=== PATIENT | female | born 1930 | race Caucasian/White ===

== ENCOUNTER 2017-10-10 21:11 | Emergency (ER) | payer MEDICARE, OTHER ==
[~2017-10-10] VITALS: Ht 157.5 cm; Wt 51.3 kg
[~2017-10-10 21:11] MED LIST: AMLODIPINE BESYL5 MG PO; ASPIR 8181 MG PO; CARAFATE1 GM PO; CIPRO500 MG PO; DOXEPIN HCL75 MG PO; ECOTRIN81 MG PO; FUROSEMIDE20 MG PO; GLIMEPIRIDE2 MG PO; GLIPIZIDE ER5 MG PO; GLIPIZIDE5 MG PO; GLUCOPHAGE500 MG PO; KLOR-CON 1010 MEQ PO; KLOR-CON M1010 MEQ PO; LASIX40 MG PO; LEVATOL20 MG PO; LOPRESSOR25 MG PO; LORAZEPAM0.5 MG PO; LOTREL 5-10 MG1 EACH PO; MULTAQ 400MG T400 MG PO; PACERONE200 MG PO; PANTOPRAZOLE SO20 MG PO; PANTOPRAZOLE SO40 MG PO; PROLIA60 MG/1 ML SQ; SUCRALFATE1 GM PO; VITAMIN C1000 M1 PO; VITAMIN C1000 M2 PO; VITAMIN D2000 UNIT PO; VITAMIN E100 UNIT PO; VITAMIN E400 UNI2 PO; [UNRECOGNIZED DRUG - OTHER] PO
--- OUTSIDE RECORDS SUMMARY | 2017-10-10 21:14 | XMS REPORT ---
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 Allergies, Adverse Reactions, Alerts This patient has no known allergies or adverse reactions. Medications This patient has no known medications. Results Test Description Test Time Test Comments Text Results Atomic Results Result Comments CHEST SINGLE (PORTABLE) [place] [address] Patient Name: SOFYA MAGUIRE MR #: [id number] : 1930 Age/Sex: 87/F Req #: [id number] [facility] Physician: Ordered by: XAVI KELLY MD Report #: [id number] Location: ER Room/Bed: Procedure: [id number] DX/CHEST SINGLE (PORTABLE) Exam Date: Exam Time: REPORT STATUS: Signed PROCEDURE: CHEST SINGLE ( PORTABLE) COMPARISON: [facility], DX, CHEST SINGLE (NOT PORTABLE) , 06/11/2016, 18:52. INDICATIONS: CHEST PAIN FINDINGS: LUNGS : Left upper lobe calcified granuloma. Poor inspiration. PLEURA: No effusions or pneumothorax. HEART T MEDIASTINUM: The heart is within normal size-limits. Retrocardiac opacity compatible with a hiatal hernia. BONES T SOFT TISSUES: No acute findings. CONCLUSION: No acute thoracic abnormality. Juana Goldberg D.O. Dictated by: Juana Goldberg D.O. on 05/13/2017 at 16:51 Electronically approved by: Juana Goldberg D.O. on 05/13/2017 at 16:51 Dictated By: JUANA GOLDBERG DO 50 Transcribed By: AILEEN on 05/13/171650 COPY TO: XAVI KELLY MD CT BRAIN WO [place] [address] Patient Name: SOFYA MAGUIRE MR #: [id number] : 1930 Age/Sex: 87/F Req # : [id number] Adm Physician: Ordered by: XAVI KELLY MD Report #: [id number] Location: ER Room/Bed: Procedure: [id number] CT/CT BRAIN WO Exam Date: Exam Time: REPORT STATUS: Signed History:Fall, dizziness Comparison studies:None Technique: Axial images were obtained from the skull base to the vertex. Coronal and sagittal images reconstructed from the axial data. Intravenous contrast: None Findings: Scalp/skull: No abnormalities. Extra- axial spaces: No masses. No fluid collections. Brain sulci: Mildly prominent. Ventricles: Mild compensatory dilatation. No hydrocephalus. Parenchyma: Scattered small hypodensities in the supratentorial white matter are small vessel ischemic changes. No masses, hemorrhage, acute or chronic cortical vascular insults. Sellar/suprasellar region: No abnormalities. Craniocervical junction: Patent foramen magnum. No Chiari one malformation. Incidental findings: Atherosclerotic calcifications in the carotid siphons and vertebral arteries . Impression: No acute abnormalities. Chronic findings: 1. Mild generalized volume loss. 2. Mild supratentorial white matter small vessel ischemic changes. Signed by: DR Octavio Abernathy M.D. on 05/13/2017 5:04 PM Dictated By: OCTAVIO ABERNATHY MD 03 Transcribed By: BOBY on 05/13/171703 COPY TO: XAVI KELLY MD
--- NOTE | 2017-10-10 22:29 | Diagnostic Imaging Report ---
EXAMINATION: Head CT without contrast. HISTORY:Dizziness, fall. COMPARISON:Multiple prior studies, most recent CT brain from 05/13/2017. TECHNIQUE: Multidetector axial images were obtained from the foramen magnum to the vertex without contrast. The images were reconstructed using brain and bone algorithms. Thin section brain images were reformatted into coronal and sagittal planes. Intravenous contrast: None IMAGE QUALITY: Acceptable. FINDINGS: Skull/scalp: No fractures. No lytic or blastic lesions. Parenchyma: Nonspecific bilateral frontoparietal confluent periventricular and patchy subcortical white matter hypodensity are likely related to small vessel ischemic changes. No acute hemorrhage, mass or acute major vascular territorial infarct. Arteries: Atherosclerotic calcification in bilateral carotid siphon and V4 segment of the vertebral arteries. Dural sinuses: No abnormal density suggestive of thrombosis. Ventricles: No hydrocephalus or displacement. Extra-axial spaces: No abnormal density. Brain volume: Mild generalized cerebral volume loss. Craniocervical junction: No mass, Chiari malformation, or basilar invagination. Sella: No mass. Paranasal/mastoid sinuses: Imaged portions unremarkable. IMPRESSION: No acute intracranial abnormality. Chronic findings: 1. Mild generalized cerebral volume loss. 2. Mild supratentorial white matter microvascular ischemic changes. Signed by: Dr. Malu Asher M.D. on 10/10/2017 10:25 PM
--- NOTE | 2017-10-10 23:02 | Diagnostic Imaging Report ---
LUMBAR 3 VIEW COCCYX 1 VIEW HISTORY: Status post fall COMPARISON: None FINDINGS: Bones: No displaced fracture. Diffuse demineralization Degenerative dextrorotoscoliosis of the lumbar spine Joints: Severe degenerative disc changes as well as facet hypertrophy throughout the visualized thoracolumbar spine Soft tissues: Severe calcification of the thoracoabdominal aorta and branches. Postsurgical arelis in the distribution of the gallbladder and anterior midline abdominal wall. Large amount of stool throughout the colon. IMPRESSION: 1. No acute osseous abnormality. 2. Advanced degenerative changes of the spine. 3. Constipation. Signed by: Dr. Pablo Palencia M.D. on 10/10/2017 10:58 PM
[2017-10-10 23:16] LABS: BASOPHILS # (AUTO) 0.1 (0.0-0.1); BASOPHILS % 0.4 % (0.0-1.0); HEMATOCRIT 38.4 % (34.2-44.1); LYMPHOCYTES # (AUTO) 0.8 (1.0-3.2); LYMPHOCYTES % 5.8 % (18.0-39.1); MEAN CORPUSCULAR HEMOGLOBIN 31.7 pg (28-32); MEAN CORPUSCULAR HGB CONC 33.9 g/dL (31-35); MEAN CORPUSCULAR VOLUME 93.7 fL (81-99); MONOCYTES # (AUTO) 0.5 (0.2-0.8); MONOCYTES % 3.8 % (4.4-11.3); NEUTROPHILS # (AUTO) 12.4 (2.1-6.9); NEUTROPHILS % 89.4 % (38.7-80.0); PLATELET COUNT 403 x10e3/uL (140-360); RED CELL DISTRIBUTION WIDTH 12.9 % (11.7-14.4)
[2017-10-10 23:29] LABS: BILIRUBIN,URINE NEGATIVE (NEGATIVE); KETONES,URINE NEGATIVE (NEGATIVE); LEUKOCYTE ESTERASE ,URINE TRACE (NEGATIVE); NITRITE,URINE NEGATIVE (NEGATIVE); PROTEIN,URINE DIPSTICK NEGATIVE (NEGATIVE); URINE UROBILINOGEN 0.2 mg/dL (0.2 - 1)
[2017-10-10 23:31] LABS: CLARITY,URINE CLEAR (CLEAR); COLOR,URINE YELLOW (YELLOW)
[2017-10-10 23:35] LABS: ALBUMIN 4.3 g/dL (3.5-5.0); ALBUMIN/GLOBULIN RATIO 1.2 (0.8-2.0); ANION GAP 18.6 mmol/L (8-16); CALCIUM 9.9 mg/dL (8.4-10.2); CREATININE, SERUM 0.94 mg/dL (0.57-1.11); POTASSIUM 3.6 mmol/L (3.5-5.1)
[2017-10-10 23:37] LABS: BACTERIA,URINE FEW /HPF; EPITHELIAL CELLS,URINE FEW /LPF; RBC,URINE 0-5 /HPF (0-5)
== END 2017-10-11 00:04 | disposition home or self-care (01) ==
LOC: ER 21:11
DX: S30.0XXA Contusion of lower back and pelvis, initial encounter (principal); W01.0XXA Fall on same level from slipping, tripping and stumbling without subsequent striking against object, initial encounter; Y92.008 Other place in unspecified non-institutional (private) residence as the place of occurrence of the external cause; N30.90 Cystitis, unspecified without hematuria
CPT/HCPCS: 36415; 70450; 72100; 72220; 80053; 81001; 85025; 93005; 99284

== ENCOUNTER → 2018-01-03 | Outpatient (CLI) | payer MEDICARE, OTHER ==
--- NOTE | 2018-01-03 15:37 | Diagnostic Imaging Report ---
TECHNIQUE: Magnetic resonance imaging of the RIGHT SHOULDER was performed WITHOUT injected contrast. HISTORY: Pain, fall COMPARISON: None available. FINDINGS: MUSCLES AND TENDONS: Rotator Cuff: Tendons: Supraspinatus and Infraspinatus: Full-thickness tear, the full-thickness defect measures 4.3 cm (ML) x 4.4 cm (AP). Teres Minor: Intact Subscapularis: Mild thickening, increased intrasubstance signal, and low-grade partial tearing. Muscles: Mild atrophy of the supraspinatus and intraspinous. Biceps Tendon: The intra-articular and intertubercular portion of the tendon is not visualized, compatible with proximal rupture and distal retraction. GLENOHUMERAL JOINT: Glenoid Labrum: Complicated attenuation, most notably the superior labrum and the anterior labrum. Articular Cartilage: Full-thickness erosion of the superior and anterior glenoid cartilage. Joint Fluid: Large effusion extending into the subacromial/subdeltoid bursa. ACROMIOCLAVICULAR JOINT: Mild hypertrophic degenerative changes of the acromioclavicular joint. Synovitis and trace effusion. BONE: Acetabularization of the undersurface of the acromion. No focal or infiltrative bone marrow replacing abnormality. Prominent subchondral bone marrow edema within the humeral head and the subchondral bone of the superior glenoid. Superior subluxation of the humeral head. Enthesopathic changes at the greater tuberosity of the humerus. SOFT TISSUES: Otherwise, unremarkable. IMPRESSION: 1. Chronic full-thickness supraspinatus and infraspinatus tear. 2. Subscapularis tendinosis and low-grade partial thickness tearing. 3. Proximal rupture and distal retraction of the long head of the biceps tendon. 4. 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 5. Mild acromioclavicular osteoarthrosis. Signed by: Dr. Surjit Valle D.O., M.M.M. on 01/03/2018 3:33 PM
== END ==
LOC: MRI 13:09
DX: M25.511 Pain in right shoulder (principal)

== ENCOUNTER 2018-02-24 20:25 | Emergency (ER) | payer MEDICARE, OTHER ==
[~2018-02-24] VITALS: Ht 157.5 cm; Wt 51.3 kg
[2018-02-24 21:05] LABS: BASOPHILS # (AUTO) 0.1 (0.0-0.1); BASOPHILS % 0.5 % (0.0-1.0); EOSINOPHILS % 0.3 % (0.0-6.0); HEMATOCRIT 37.8 % (34.2-44.1); HEMOGLOBIN 12.8 g/dL (12.0-16.0); LYMPHOCYTES # (AUTO) 1.6 (1.0-3.2); LYMPHOCYTES % 17.5 % (18.0-39.1); MEAN CORPUSCULAR HEMOGLOBIN 31.4 pg (28-32); MEAN CORPUSCULAR HGB CONC 33.9 g/dL (31-35); MEAN CORPUSCULAR VOLUME 92.6 fL (81-99); MONOCYTES # (AUTO) 0.9 (0.2-0.8); MONOCYTES % 10.3 % (4.4-11.3); NEUTROPHILS # (AUTO) 6.5 (2.1-6.9); NEUTROPHILS % 71.3 % (38.7-80.0); PLATELET COUNT 401 x10e3/uL (140-360); RED BLOOD COUNT 4.08 x10e6/uL (3.6-5.1); RED CELL DISTRIBUTION WIDTH 12.8 % (11.7-14.4)
[2018-02-24 21:13] LABS: PARTIAL THROMBOPLASTIN TIME 23.1 seconds (23.8-35.5); PROTHROMBIN TIME 12.4 seconds (11.9-14.5)
[2018-02-24 21:22] LABS: ALBUMIN 4.2 g/dL (3.5-5.0); ALBUMIN/GLOBULIN RATIO 1.2 (0.8-2.0); ANION GAP 15.4 mmol/L (8-16); CREATININE, SERUM 0.92 mg/dL (0.57-1.11); POTASSIUM 3.4 mmol/L (3.5-5.1)
[2018-02-24 21:29] LABS: CREATINE KINASE MB 1.3 ng/mL (0-5.0)
--- NOTE | 2018-02-24 21:46 | Diagnostic Imaging Report ---
EXAM: CHEST 2 VIEWS, PA and lateral INDICATION: Burping for 1 week COMPARISON: AP view of the chest May 13, 2017 FINDINGS: LINES/TUBES: None LUNGS: No consolidations or edema. PLEURA: No effusions or pneumothorax. HEART AND MEDIASTINUM: Stable appearance given rotation. BONES AND SOFT TISSUES: No acute findings. Surgical clips project over the upper abdomen. Mild loss of vertebral body height mid thoracic spine. IMPRESSION: No acute thoracic abnormality. Signed by: Dr. Laurita Mccurdy M.D. on 02/24/2018 9:42 PM
[2018-02-24 23:25] VITALS: BP 171/88
== END 2018-02-24 23:42 | disposition home or self-care (01) ==
LOC: ER 20:25
DX: R14.0 Abdominal distension (gaseous) (principal); R14.2 Eructation; I10 Essential (primary) hypertension; E11.9 Type 2 diabetes mellitus without complications; I48.91 Unspecified atrial fibrillation; K21.9 Gastro-esophageal reflux disease without esophagitis
CPT/HCPCS: 36415; 71046; 80053; 82550; 82553; 84484; 85025; 85610; 85730; 93005; 99283

== ENCOUNTER → 2018-04-18 | Outpatient (CLI) | payer MEDICARE ==
[~2018-04-18] MED LIST changes: +IOPAMIDOL 370 MG/ML 200 ML INFUS..BTL INJ ONE; +SODIUM CHLORIDE 0.9% 50ML 50 ML ONE
[2018-04-18 12:45] LABS: BLOOD UREA NITROGEN 23 mg/dL (7-26); BUN/CREATININE RATIO 29 (6-25); CREATININE, SERUM 0.79 mg/dL (0.57-1.11); EST GLOMERULAR FILTRATION RATE > 60 ML/MIN (60-)
--- NOTE | 2018-04-18 14:46 | Diagnostic Imaging Report ---
EXAM: CT Abdomen and Pelvis WITH contrast INDICATION: \[id number] \S\[id number] \S\ACUTE GASTRITIS COMPARISON: Chest radiograph 02/24/2018 and 05/13/2017 TECHNIQUE: Abdomen and pelvis were scanned utilizing a multidetector helical scanner from the lung base to the pubic symphysis after administration of IV contrast. Coronal and sagittal reformations were obtained. Routine protocol was performed. Scan was performed when during portal venous phase. IV CONTRAST: 100 mL of Isovue-370 ORAL CONTRAST: Water RADIATION DOSE: Total DLP: 162.9 mGy*cm Estimated effective dose: (DLP x 0.015 x size factor) mSv COMPLICATIONS: None FINDINGS: LINES and TUBES: None. LOWER THORAX: Mild subpleural reticulation of the lungs in both posterior lung bases suggestive of nonspecific pattern of pulmonary fibrosis. These appear unchanged since 05/13/2017. Moderate hiatal hernia. HEPATOBILIARY: No focal hepatic lesions. Mild dilatation of the common bile duct, expected after cholecystectomy. No intrahepatic biliary duct dilatation. GALLBLADDER: Cholecystectomy. SPLEEN: No splenomegaly. PANCREAS: The pancreas is not well-visualized. There appears to be a prominent pancreatic duct. There appears to be diffuse atrophy of the distal body and pancreatic tail. This is has been replaced by a low-attenuation fluid. ADRENALS: No adrenal nodules KIDNEYS/URETERS: Kidneys enhance symmetrically. No hydronephrosis. No cystic or solid mass lesions. No stones. GI TRACT: No abnormal distention, wall thickening, or evidence of bowel obstruction. Scattered diverticulosis, for example, there is a calcified diverticulum in the sigmoid colon within the pelvis on series 2, image 63. Appendix is not visualized. PELVIC ORGANS/BLADDER: Unremarkable. LYMPH NODES: No lymphadenopathy. VESSELS: Moderate atherosclerotic calcifications of the abdominal aorta and pelvic arteries without aneurysm. PERITONEUM / RETROPERITONEUM: No free air or fluid. BONES: Scoliosis. Bones degenerative disease and facet arthrosis throughout the lumbar spine. SOFT TISSUES: Surgical arelis in the anterior abdominal wall, midline. IMPRESSION: 1. Moderate hiatal hernia. Remaining stomach is collapsed and difficult to evaluate. 2. Suboptimal evaluation of the pancreas. There appears to be severe atrophy of the distal body and tail with prominence pancreatic duct. Recommend GI consultation and consider ambulatory MRI with and without contrast pancreas protocol. Signed by: Dr. Chely Tai M.D. on 04/18/2018 2:43 PM
== END ==
LOC: CT 11:53
PROVIDERS: ATTEND Internal Medicine Gastroenterology
DX: K29.00 Acute gastritis without bleeding (principal); K44.9 Diaphragmatic hernia without obstruction or gangrene; K21.0 Gastro-esophageal reflux disease with esophagitis
CPT/HCPCS: 36415; 74177; 82565; 84520; Q9967